=== PATIENT | female | born 1945 ===

== ENCOUNTER 2025-08-07 09:13 | Outpatient (RCR) | payer MEDICARE, SELFPAY | END 2025-09-19 12:42 | disposition home or self-care (01) | LOC: PT 09:13 | PROVIDERS: Visit Provider Internal Medicine | DX: M54.30 Sciatica, unspecified side (principal); G20.A1 Parkinson's disease without dyskinesia, without mention of fluctuations; R26.81 Unsteadiness on feet; M54.50 Low back pain, unspecified | CPT/HCPCS: 97035; 97110; 97112; 97140; 97161; G0283 ==